=== PATIENT | male | born 1935 | race Caucasian/White ===

== ENCOUNTER → 2019-08-19 | Outpatient (CLI) | payer OTHER ==
[~2019-08-19] MED LIST: ACETAMINOPHEN650 M5 PO; ASPIRIN EC81 M1 PO; CLOPIDOGREL75 MG PO; CRESTOR20 MG PO; FISH OIL 1,0001 EAC5 PO; MULTI VITAMIN1 EACH PO; NITROSTAT0.4 MG SL; OMEPRAZOLE 20 M20 M1 PO; ZESTRIL10 MG PO; ZESTRIL20 MG PO
== END ==
LOC: M.WC 01:08
DX: L03.032 Cellulitis of left toe (principal); E78.00 Pure hypercholesterolemia, unspecified; E03.9 Hypothyroidism, unspecified; I10 Essential (primary) hypertension; I70.90 Unspecified atherosclerosis; K21.9 Gastro-esophageal reflux disease without esophagitis; Z79.82 Long term (current) use of aspirin; Z95.5 Presence of coronary angioplasty implant and graft

== ENCOUNTER → 2019-08-26 | Outpatient (CLI) | payer OTHER | LOC: M.WC 01:39 | DX: L03.032 Cellulitis of left toe (principal); E03.9 Hypothyroidism, unspecified; E78.00 Pure hypercholesterolemia, unspecified; I70.90 Unspecified atherosclerosis; I10 Essential (primary) hypertension; K21.9 Gastro-esophageal reflux disease without esophagitis; Z95.5 Presence of coronary angioplasty implant and graft ==

== ENCOUNTER → 2019-09-02 | Outpatient (CLI) | payer OTHER | LOC: M.WC 03:39 | DX: L03.032 Cellulitis of left toe (principal); E78.00 Pure hypercholesterolemia, unspecified; E03.9 Hypothyroidism, unspecified; I10 Essential (primary) hypertension; I70.90 Unspecified atherosclerosis; K21.9 Gastro-esophageal reflux disease without esophagitis; Z95.5 Presence of coronary angioplasty implant and graft ==

== ENCOUNTER → 2019-11-11 | Outpatient (CLI) | payer OTHER | LOC: M.WC 01:36 | DX: R21 Rash and other nonspecific skin eruption (principal); N18.3 Chronic kidney disease, stage 3 (moderate); E03.9 Hypothyroidism, unspecified; E78.00 Pure hypercholesterolemia, unspecified; K21.9 Gastro-esophageal reflux disease without esophagitis; Z79.82 Long term (current) use of aspirin ==

== ENCOUNTER → 2021-07-29 | Outpatient (CLI) | payer OTHER ==
--- NOTE | 2021-07-29 17:19 | CARDNUC ---
[place] [address] CARDIAC NUCLEAR IMAGING REPORT Name: MALLY GUZMAN Room: [facility]#: [id number] Admission: 07/29/21 Attend Phys: Slim Gracia MD Discharge: Date of : 33 Date of Service: 07/29/21 1718 Report #: [id number] THIS REPORT FOR: cc: Maco Snow MD, Khanh MD Liston, Michael J. MD [facility] ~ APPROVED REPORT Study performed: 07/29/2021 12:52:49 Exam: Nuclear Stress Test Indication: Dyspnea, Fatigue Patient Location: Out-Patient Stress Tech: krys arevalo Stress Nurse: Shirley Carrasco RN NM Tech:GAGE Gifford Ht: 5 ft 10 in Wt: 190 lbs BSA: 2.04 m2 BMI: 27.25 Medical History Medical History: CAD s/p stent Medications: clopidogrel, isosorbide, metoprolol, rosuvastatin Allergies: No known drug allergies Cardiac Risk Factors: Age, HTN, Hyperlipidemia Previous Cardiac Procedures: PCI Exercise History: Physically active Meds Held (24 hrs): isosorbide, metoprolol Stress Test Details Stress Test: Pharmacologic stress testing performed using 0.4 mg of regadenoson per 5 mL given IV over 10 seconds. Reason for pharmacologic stress test: LBBB. HR Resting HR: 70 bpm Max Heart Rate (APMHR): 133 bpm Max HR Achieved: 97 bpm Target HR (85% APMHR): 113 bpm % of APMHR: 72 Recovery HR: 85 bpm BP Resting BP: 182/107 mmHg Max BP: 158/85 [place] [address] CARDIAC NUCLEAR IMAGING REPORT Name: GUZMANMALLY L Room: [facility]#: [id number] Admission: 07/29/21 Attend Phys: Slim Gracia MD Discharge: Date of : 34 Date of Service: 07/29/21 1718 Report #: [id number] ECG Resting ECG: Sinus Rhythm, LBBB Stress ECG: Sinus Rhythm, LBBB ST Change: None Arrhythmia: None Recovery ECG: Sinus Rhythm, LBBB Recovery ST Change: None Recovery Arrhythmia: None Clinical Reason for Termination: Completed protocol The patient tolerated Lexiscan infusion without significant cardiac complaint. Stress ECG Conclusion The baseline twelve-lead EKG shows sinus rhythm with left bundle branch block. EKGs obtained during and post Lexiscan infusion show sinus rhythm with left bundle branch block. There were no significant changes with Lexiscan stress noted. There were no stress-induced arrhythmias. NM EXAM: Myocardial Perfusion REST/STRESS Imaging Protocol: Rest Tc-99m/Stress Tc-99m 1 day Resting Data Rest SPECT myocardial perfusion imaging was performed in supine position 30 minutes following the intravenous injection of 10.0 mCi of Tc-99m Sestamibi. Time of rest injection: 1200 Date: 07/29/2021 The images were gated to evaluate regional wall motion and calculate left ventricular ejection fraction. Administration Route: IV Pharmacologic Stress Pharmacologic stress test was performed by injecting Regadenoson 0.4 mg IV push followed by the intravenous injection of 35.4 mCi of Tc-99m Sestamibi. Time of stress injection: 1300 Date: 07/29/2021 Administration Route: IV Gated Stress SPECT was performed 40 minutes after stress injection. The images were gated to evaluate regional wall motion and calculate left ventricular ejection fraction. [place] [address] CARDIAC NUCLEAR IMAGING REPORT Name: MALLY GUZMAN Room: [facility]#: [id number] Admission: 07/29/21 Attend Phys: Slim Gracia MD Discharge: Date of : 34 Date of Service: 07/29/21 1718 Report #: [id number] Study Quality Study: Good Artifact: Mild Diaphragmatic artifact Study Data Post stress, the left ventricular ejection was 77%.. TID = 0.88. Perfusion Perfusion images obtained in the supine position at rest and post Lexiscan stress show mild basilar to mid inferior wall photopenia that resolves with post-rest prone imaging. Post-rest images show a residual persistent moderate size region of mild photopenia involving the basal to mid inferolateral wall. No other significant defects were identified. Wall Motion Global LV systolic function is preserved. There is slight left ventricular systolic dyssynergy consistent with bundle branch block. Nuclear Conclusion ECG Findings: non-diagnostic Clinical Findings: negative for ischemia Nuclear Findings: positive for ischemia Exercise Capacity: not assessed Left Ventricular Function: Preserved Risk Study: moderate Perfusion images suggest a small region of ischemia involving the basal to mid inferolateral wall. No other significant fixed or reversible defects are identified. Global LV systolic function is preserved as outlined above. This is a moderate risk study. <Conclusion> The baseline twelve-lead EKG shows sinus rhythm with left bundle branch block. EKGs obtained during and post Lexiscan infusion show sinus rhythm with left bundle branch block. There were no significant changes with Lexiscan stress noted. There were no stress-induced arrhythmias. <ELECTRONICALLY SIGNED> By: Rajendra Daniel MD, FACC 07/29/21 1718 17 17 Rajendra Daniel MD, FACC /INF
== END ==
LOC: M.NUC 06-02 11:25 → M.CRD 07-07 08:00 → M.NUC 07-07 08:00 → M.CRD 07-26 13:00 → M.NUC 07-26 13:00 → M.CRD 13:00
PROVIDERS: ATTEND Internal Medicine Cardiovascular Disease
DX: I25.89 Other forms of chronic ischemic heart disease (principal); I25.10 Atherosclerotic heart disease of native coronary artery without angina pectoris

== ENCOUNTER 2021-08-08 01:59 | Observation (INO) | payer OTHER ==
[~2021-08-08] VITALS: Ht 177.8 cm; Wt 87.1 kg
[~2021-08-08 01:59] MED LIST changes: +IMDUR 60 MG TAB60 M1 PO; +METOPROLOL TART25 MG PO; +NORVASC5 MG PO; +PROTONIX40 M2 PO; +SYNTHROID50 MCG PO
[2021-08-08 02:01] VITALS: BP 193/96
[2021-08-08 03:37] LABS: CALCIUM 8.5 mg/dL (8.5-10.1); CREATININE 1.6 mg/dL (0.6-1.3); POTASSIUM 4.3 mmol/L (3.5-5.1)
[2021-08-08 03:39] LABS: ABSOLUTE EOSINOPHILS 0.3 thou/uL (0.0-0.7); ABSOLUTE LYMPHOCYTES 0.9 thou/uL (0.8-5.3); ABSOLUTE MONOCYTES 0.8 thou/uL (0.0-1.2); ABSOLUTE NEUTROPHILS 5.9 thou/uL (1.6-8.1); BASOPHILS 0.3 %; EOSINOPHILS 3.7 %; HEMATOCRIT 43.2 % (42.0-52.0); HEMOGLOBIN 14.5 gm/dL (14.0-18.0); LYMPHOCYTES 11.6 %; MCHC 33.5 g/dL (28.0-37.0); MCV 92.8 fL (80.0-100.0); MONOCYTES 10.1 %; MPV 7.7 fl. (7.2-11.1); NUCLEATED RBCS 0 /100WBC; PLATELET COUNT* 184 thou/uL (150-400); POLYS 74.3 %; RBC 4.66 mil/uL (4.50-6.00); RDW-CV 13.4 % (10.5-14.5)
[2021-08-08 03:42] LABS: ALBUMIN 3.8 g/dL (3.4-5.0); MAGNESIUM 2.2 mg/dL (1.8-2.4); TOTAL BILIRUBIN 0.4 mg/dL (<0.1-1.0); TOTAL PROTEIN 7.4 g/dL (6.4-8.2)
[2021-08-08 05:26] LABS: URINE BILIRUBIN NEGATIVE (Negative); URINE BLOOD TRACE (Negative); URINE CLARITY CLEAR; URINE COLOR YELLOW; URINE GLUCOSE-RANDOM NEGATIVE (Negative); URINE KETONES NEGATIVE (Negative); URINE LEUKOCYTES-REFLEX NEGATIVE (Negative); URINE NITRITE-REFLEX NEGATIVE (Negative); URINE PROTEIN NEGATIVE (Negative); URINE SPECIFIC GRAVITY 1.025 (1.005-1.030); URINE UROBILINOGEN 0.2 E.U./dl (0.2-1.0)
[2021-08-08 09:09] VITALS: BP 150/77
[2021-08-08] MEDS ORDERED: ASA81BEC PO (09:49)
--- NOTE | 2021-08-08 13:16 | EKG ---
[place] [address] ELECTROCARDIOGRAM REPORT Name: MALLY GUZMAN Room: [address]#: [id number] Admission: 08/08/21 Attend Phys: Milton Fuchs Discharge: Date of : 34 Date of Service: 08/08/21 0156 Report #: [id number] THIS REPORT FOR: //name// [facility] ED Test Date: 2021-08-08 Test Time: 01:56:04 Pat Name: MALLY GUZMAN Department: Room: [facility] Gender: M Sports Intern: ARIK : 1935 Requested By: Susu Beltre Order Number: [id number] MD: Rajendra Daniel Measurements Intervals [place] Rate: 71 P: 61 CO: 208 QRS: -45 QRSD: 159 T: 65 QT: 460 QTc: 500 Interpretive Statements Sinus rhythm Consider left atrial enlargement Left bundle branch block No previous ECG available for comparison Electronically Signed On 08-08-2021 13:15:48 [employer] by Rajendra Daniel [email or web address] <ELECTRONICALLY SIGNED> By: Rajendra Daniel MD, FAC 08/08/21 1315 0156 0156 Rajendra Daniel MD, [facility] /EPI
[2021-08-08 13:30] VITALS: BP 127/71
[2021-08-08 14:33] LABS: PROTIME 10.7 Seconds (9.20-11.50)
[2021-08-08 14:36] LABS: ANION GAP 9 mmol/L (7-16); BUN 23 mg/dL (7-18); CHLORIDE 107 mmol/L (98-107); CHOLESTEROL 115 mg/dL (<200); CO2 28 mmol/L (21-32); CREATININE 1.8 mg/dL (0.6-1.3); GLUCOSE 147 mg/dL (70-99); HDL CHOLESTEROL 35 mg/dL (>40); LDL CHOLESTEROL 42 mg/dL (<100); POTASSIUM 4.3 mmol/L (3.5-5.1); SODIUM 144 mmol/L (136-145); TC:HDL 3.3 Ratio (Not establshd); TRIGLYCERIDE 194 mg/dL (<150); VLDL 39 mg/dL (<40)
[2021-08-08 14:37] LABS: SERUM ASSESSMENT Clear
[2021-08-08 17:35] VITALS: BP 125/71
[2021-08-08 22:30] VITALS: BP 141/82
[2021-08-08 23:44] VITALS: BP 141/82
[2021-08-09] VITALS (13 sets, daily range): BP systolic 114–156; BP diastolic 71–88
[2021-08-09 05:45] LABS: HEMATOCRIT 44.3 % (42.0-52.0); HEMOGLOBIN 14.8 gm/dL (14.0-18.0); MCH 31.2 pg (26.0-34.0); MCHC 33.3 g/dL (28.0-37.0); MCV 93.7 fL (80.0-100.0); MPV 8.1 fl. (7.2-11.1); RBC 4.73 mil/uL (4.50-6.00); RDW-CV 13.4 % (10.5-14.5); WBC 6.9 thou/uL (4.0-11.0)
[2021-08-09 05:56] LABS: APTT 32.6 Seconds (25.0-31.3); PROTIME 10.5 Seconds (9.20-11.50)
[2021-08-09 06:04] LABS: ALBUMIN 3.7 g/dL (3.4-5.0); CALCIUM 8.2 mg/dL (8.5-10.1); CREATININE 1.8 mg/dL (0.6-1.3); MAGNESIUM 1.8 mg/dL (1.8-2.4); POTASSIUM 4.2 mmol/L (3.5-5.1); TOTAL BILIRUBIN 0.6 mg/dL (<0.1-1.0); TOTAL PROTEIN 7.1 g/dL (6.4-8.2)
--- NOTE | 2021-08-09 07:10 | NUR ---
CHANGE OF SHIFT REPORT GIVEN PATIENT SEEN AT BESIDE, IN BED AND WATCHING TV ASSUMED PATIENT CARE
--- NOTE | 2021-08-09 15:31 | NUR ---
Attempted assessment x2 - however pt is having a heart cath today. CM to continue to follow for discharge planning.
--- NOTE | 2021-08-09 17:23 | CARD ---
[address] [address] CARDIAC CATH REPORT Name: MALLY GUZMAN Room: [address] Pj MSabrina#: [id number] Admission: 08/08/21 Attend Phys: Celine Sheehan Discharge: Date of : 34 Report #: [id number] THIS REPORT FOR: cc: Maco Snow MD, Khanh MD Blick, David R. MD [facility] ~ APPROVED REPORT Study performed: 08/09/2021 13:50:35 Patient Details Patient Status: In-Patient Room #: 202 The patient is a 86 year-old male Event Personnel Slim Gracia Professor Of Nursing, Liliana Rincon RN RN, Christy Valdes RTR Scrub, Apple Sutherland RN Monitor Procedures Performed Art Access - R radial artery Left Heart Cath w/or w/o Coronaries [id number] [facility] w/wo Plasty Single RCA [id number] Hemostasis with Hemoband Indication Unstable angina , Chest pain Risk Factors Hypercholesterolemia, Coronary Artery DiseaseHypertension Previous Procedures/Diagnoses Previous PCI Admission/Lab Medications/Medications given during procedure Heparin Unfract., Oxygen Nasal cannula 2 l per min, 0.9% Sodium Chloride IV 75 ml per hr, Lidocaine Subcut 5 ml, Nitroglycerin IA 400 mcg, Verapamil IA 5.0 mg, Heparin IV 4480 units, Heparin IV 3000 units Procedure Narrative The patient was brought electively to the Cardiac Catheterization Laboratory and was prepped and draped in a sterile manner. The right wrist was infiltrated with 2% Lidocaine subcutaneous anesthesia. IV conscious sedation was used throughout procedure with appropriate monitoring and was performed in the [place] [address] CARDIAC CATH REPORT Name: GUZMANMALLY L Room: [address] Pj Benson#: [id number] Admission: 08/08/21 Attend Phys: Celine Sheehan Discharge: Date of : 34 Report #: [id number] who was an independent trained observer other than the physician performing the procedure. A Slender Glidesheath sheath was inserted into the right radial artery. Coronary angiography was performed using coronary diagnostic catheters. The right coronary system was accessed and visualized with a Diagnostic 6 Fr JL 4.0 catheter. The left coronary system was accessed and visualized with a Diagnostic 6 Fr JL 4.0 catheter. The left ventricle was accessed and visualized with a Diagnostic pigtail catheter. Left ventricular/Aortic Valve gradient assessed via catheter pullback. Left ventriculogram was performed in ALVARES projection. Closure device was deployed with a 6 Fr Vasc-Band Reg 24cm. The patient tolerated the procedure well and there were no complications associated with the procedure. There was no hematoma. Intraoperative Conscious Sedation Sedation start time: 1446 Case end Time: 1551 Versed 2.0 mg Dose: 1054 mGy Contrast Type and Amount: Visipaque 180 mL Coronary Angiography The patient's coronary anatomy is right dominant. Diagnostic Cath Left Main 60% distal stenosis LAD mid stent had 0% restenosis Diagonal 1 large vessel with 60% ostial stenosis Circumflex ostial 100% chronic occlusion with retrograde collaterals from the RCA Right Coronary proximal and mid stents both had 90% restenosis. Distal collaterals filled the circumflex artery by retrograde flow. Left Ventriculography The left ventricular ejection fraction is estimated to be 60-65%. Left ventricular wall motion abnormalities are not present. There is 1+ mitral insufficiency. Hemodynamics The aortic pressure is 120/67 mmHg with a mean of 90 mmHg. The left ventricular pressure is 126/10 mmHg with a mean of mmHg. The left ventricular end diastolic pressure is 14 mmHg. There was no gradient across the aortic valve upon pull[place] [address] CARDIAC CATH REPORT Name: GUZMANMALLY L Room: [address]#: [id number] Admission: 08/08/21 Attend Phys: Celine Sheehan Discharge: Date of : 34 Report #: [id number] ventricle to the aorta revealed no gradient across the aortic valve. PCI Technique Lesion Anticoagulation was achieved with Heparin. Patient was preloaded with Plavix. Percutaneous coronary intervention was performed on the proximal and mid right coronary artery. The lesion stenosis prior to intervention was 90% with STEPHANIE 3 flow. A 6F AR 2 Guide Catheter was used to engage the rca ostium. A IG: BMW 190cm Interventional Guidewire was used to cross the lesion. BALLOON DILATION A Balloon catheter Euphora SC 2.5x10 was inserted and inflated up to 16.00atm for 17seconds. Repeat angiography revealed the following post-dilatation results: 50% stenosis. Additional Inflation: 16.00atm for 13seconds. Both the mid and proximal stenoses were predilated. Because of abnormal takeoff of the RCA, a 3DRC catheter was unable to supply support for PTCA. STENT DEPLOYMENT A drug-eluting stent Xience Anahi 2.33C01xp was inserted and inflated up to 20.00atm for 18seconds. Repeat angiography revealed the following post-stent deployment results: 0% stenosis. Additional Inflation: 22.00atm for 12seconds. Due to tortortuosity of the RCA and lack of guide support, the stent required a second BMW wire in the RCA to act as a ebenezer wire to advance the stent. Final angiography reveals 0 % stenosis with STEPHANIE 3 flow. Conclusion 1. 60% distal left main stenosis. 2. No restenosis noted of a stent in the mid LAD. 3. chronic occlusion of the proximal circumflex, that filled distally by retrograde collaterals from the RCA. 4. 90% restenosis noted of both stents in the proximal and mid RCA. 5. LVEF 60-65% 6. successful placement of a long drug eluting stent in the proximal and [place] [address] CARDIAC CATH REPORT Name: KRISTEL GUZMANPITA Hernandez Room: [address] ADM Pj Benson#: [id number] Admission: 08/08/21 Attend Phys: Celine Sheehan Discharge: Date of : 34 Report #: [id number] Cardiac Rehabilitation Referral [facility] <ELECTRONICALLY SIGNED> By: Slim Gracia MD, FACC 08/09/21 [phone] 1722Daviceline Gracia MD, FACC /INF
[2021-08-10] VITALS (7 sets, daily range): BP systolic 100–132; BP diastolic 51–71
[2021-08-10 06:16] LABS: HEMATOCRIT 40.9 % (42.0-52.0); HEMOGLOBIN 13.7 gm/dL (14.0-18.0); MCH 31.3 pg (26.0-34.0); MCHC 33.6 g/dL (28.0-37.0); MCV 93.3 fL (80.0-100.0); RBC 4.38 mil/uL (4.50-6.00); RDW-CV 13.4 % (10.5-14.5); WBC 7.3 thou/uL (4.0-11.0)
[2021-08-10 06:36] LABS: CALCIUM 8.2 mg/dL (8.5-10.1); CREATININE 1.6 mg/dL (0.6-1.3); MAGNESIUM 1.8 mg/dL (1.8-2.4); POTASSIUM 4.2 mmol/L (3.5-5.1)
--- NOTE | 2021-08-10 08:13 | CON ---
[address] [address] CONSULTATION Name: MALLY GUZMAN Room: [address] Pj Benson#: [id number] Admission: 08/08/21 Attend Phys: Celine Sheehan Discharge: Date of : 34 Report #: [id number] THIS REPORT FOR: cc: Maco Snow MD, Khanh MD Liston, Michael J. MD [facility] ~ cc: Francesca Cervantes DO, David R. Blick, MD [facility] DATE OF CONSULTATION: 08/08/2021 INDICATION: Chest pain. HISTORY OF PRESENT ILLNESS: The patient is a very pleasant 86-year-old gentleman with history of coronary artery disease. He had previous stenting to his right coronary artery and LAD in 2014. The patient has been having accelerating chest pain over the past several weeks. Typically, his chest pain was relieved with a single sublingual nitroglycerin. Last night, he took 3 nitroglycerins without significant relief and presented to the Emergency Room. He is thus far ruled out for myocardial infarction; however, he does have evidence of inferior wall ischemia on recent stress test. The patient is without other cardiac complaints at this time. PAST MEDICAL HISTORY: 1. Coronary artery disease. 2. Hypertension. 3. Hyperlipidemia. 4. Left knee surgery. 5. Appendectomy. 6. Seasonal allergies. HOME MEDICATIONS: Rosuvastatin 20 mg at bedtime, multivitamin 1 tablet daily, fish oil 1000 mg daily, Plavix 75 mg daily, Imdur 60 mg daily, Synthroid 50 mcg daily, metoprolol tartrate 25 mg b.i.d., Protonix 40 mg daily, amlodipine 5 mg daily. ALLERGIES: None known. SOCIAL HISTORY: The patient drinks alcohol occasionally. He does not smoke. REVIEW OF SYSTEMS: As per HPI, otherwise unremarkable. PHYSICAL EXAMINATION: VITAL SIGNS: Stable. Blood pressure 150/77, pulse is 76 and regular. GENERAL: This is a pleasant gentleman in no distress[place] [address] CONSULTATION Name: KRISTEL GUZMANPITA Hernandez Room: [address] Marcelino#: [id number] Admission: 08/08/21 Attend Phys: Celine Sheehan Discharge: Date of : 34 Report #: [id number] HEENT: Extraocular muscles intact. Mucous membranes are moist. NECK: Shows no jugular venous distention. There are no carotid bruits. CHEST: Reveals clear lung coombs without wheezes or rales. CARDIAC: Reveals a regular rhythm without gallop or murmur. ABDOMEN: Reveals normal bowel sounds. The abdomen is soft, nontender. EXTREMITIES: Shows no clubbing, cyanosis or edema. DIAGNOSTIC DATA: A 12-lead EKG shows a sinus rhythm without acute ST abnormality. LABORATORY DATA: Reviewed and unremarkable. IMPRESSION AND RECOMMENDATIONS: 1. Chest pain in patient with recent positive stress test and progressive angina. We will plan coronary angiography in a.m. 2. Coronary artery disease. Continue Plavix at current dose. 3. Hypertension. Blood pressure is mildly elevated at this time. We will adjust medications as needed. 4. Dyslipidemia. Continue current statin agent. <ELECTRONICALLY SIGNED> By: Rajendra Daniel MD, FACC 08/10/21 0813 1155 [id number] Daniel MD, FACC /nt
--- NOTE | 2021-08-10 08:41 | EKG ---
[place] [address] ELECTROCARDIOGRAM REPORT Name: MALLY GUZMAN Room: [address]#: [id number] Admission: 08/08/21 Attend Phys: Milton Fuchs Discharge: Date of : 34 Date of Service: 08/10/21 0744 Report #: [id number] THIS REPORT FOR: //name// [facility] Test Date: 2021-08-10 Test Time: 07:44:29 Pat Name: MALLY GUZMAN Department: Room: [address] Gender: M House Designer: : 1935 Requested By: Slim Gracia Order Number: [id number] Vanessa MD: Rajendra Daniel Measurements Intervals [place] Rate: 60 P: 40 WV: 209 QRS: -39 QRSD: 156 T: 58 QT: 497 QTc: 497 Interpretive Statements Sinus rhythm Left bundle branch block Compared to ECG 08/08/2021 01:56:04 No significant changes Electronically Signed On 08-10-2021 8:41:03 [employer] by Rajendra Daniel [email or web address] <ELECTRONICALLY SIGNED> By: Rajendra Daniel MD, [facility] 08/10/21 0841 0744 Rajendra Daniel MD, [facility] /EPI
--- NOTE | 2021-08-10 08:50 | NUR ---
Pt is admitted on 08/08/21 for chest pain. Pt had a heart cath yesterday. Pt is alert and oriented x 4. Pt lives with in a house with 2 steps to enter. Pt was previously independent in ambulation and ADL's. No hx of HH/DME/ or SNF. Pt fills his prescriptions at [facility] on [address], [address] Pt saw his PCP 2-3 months ago. Anticipate possible discharge today. CM to continue to follow for discharge needs.
--- NOTE | 2021-08-10 13:05 | NUR ---
ASSUMED CARE OF PT THIS AM AROUND 07- CEMENT LOADER IN PLACE ORDERED, TRACING SR/1ST DEGREE/BBB- UPON ASSESSMEN PT NOTED TO BE RESTING IN BED- PT A&O X4- CONT OF B/B- UP AD-CLOTILDE IN ROOM, STEADY GAIT- VSS, O2 SAT 96% ON RA- ABD SOFT/ROUND/NON-TENDER, BS X4 QUADS- BM REPORTED THIS AM-RIGHT INCISSION CATH SITE WITH GAUZE CLEAR DRESSING IN PLACE, NO DRAINAGE OR SWELLING NOTED- IVF COMPLETED INDICATED AND PT IV TO LEFT FA AND LEFT AC D/C'D FOR DISCHARGE INDICATED- HERE TO SEE PT WELL WITH OKAY TO D/C TO HOME THIS SHIFT- D/C EDUCATION/TEACHING/NEEDED FOLLOW UP'S COMMUNICATED TO PT AND DAUGHTER PRIOR TO D/C WITH ALL QUESTIONS AND CONCERNS ADDRESSED PRIOR TO D/C- BELONGINGS PACKED AND ACCOUNTED FOR PER PT- PT ESCORTED- PT ESCORTED PER TECH WITH BELONGINGS VIA W/C TO VEHICLE; DAUGHTER AT SIDE AT 1310- NO PROBLMES TO NOTE AT TIME OF D/C
== END 2021-08-10 13:10 | disposition home or self-care (01) ==
LOC: M.ERS 01:59 → M.2W 03:59 → M.TBA-ER 03:59 → M.2W 08-09 00:31
PROVIDERS: Emergency Medicine; Internal Medicine; Internal Medicine Cardiovascular Disease; ADMIT Internal Medicine; ATTEND Internal Medicine
DX: I25.10 Atherosclerotic heart disease of native coronary artery without angina pectoris (principal); K21.9 Gastro-esophageal reflux disease without esophagitis; Z20.822 Contact with and (suspected) exposure to COVID-19; E03.9 Hypothyroidism, unspecified; E78.5 Hyperlipidemia, unspecified; I44.7 Left bundle-branch block, unspecified; I51.7 Cardiomegaly; I12.9 Hypertensive chronic kidney disease with stage 1 through stage 4 chronic kidney disease, or unspecified chronic kidney disease; N18.2 Chronic kidney disease, stage 2 (mild); Z90.49 Acquired absence of other specified parts of digestive tract; Z98.890 Other specified postprocedural states; Z79.899 Other long term (current) drug therapy; Z79.82 Long term (current) use of aspirin

== ENCOUNTER 2021-09-02 07:49 | Inpatient (IN) | payer OTHER ==
[~2021-09-02] VITALS: Ht 177.8 cm; Wt 90.3 kg
--- NOTE | ~2021-09-02 | PROC ---
[address] [address] PROCEDURE REPORT Name: MALLY GUZMAN Room: [address] IN .R.#: [id number] Admission: 09/02/21 Attend Phys: Shayla Delgado MD Discharge: 09/07/21 Date of : 34 Report #: [id number] THIS REPORT FOR: cc: Maco Snow MD, Khanh MD [facility],Medical Records Staff ~ For Gi report, please see the Provation report in Perceptive 7 content. By: [id number] Records Staff YESY /SEUN
--- NOTE | ~2021-09-02 | EMS ---
[address] [address] EMS Patient Care Report Name: MALLY GUZMAN [id number] Admission: Attend Phys: Discharge: Date of : 34 Report #: [id number] THIS REPORT FOR: //name// Report Transmitted: 09/02/2021 07:38 EMS Care Summary [facility] [place] Incident [id number] @ 09/02/2021 07:08 Incident Location [facility] [address] [place] [address] Patient MALLY GUZMAN Male, 86 Years 1935 Patient Address [address] [place] [address] Patient History Cardiac Condition - Other,Presence of coronary angioplasty implant and graft,Hypothyroidism, unspecified, Patient Allergies No known allergies, Patient Medications Clopidogrel, Sertraline, Metoprolol, Aspirin, Rosuvastatin, Valtrex, Chief Complaint Vomiting Disposition Transported No Lights/[place] Dispatch Reason Hemorrhage/Laceration Transported To [facility] Narrative [facility] DISPATCHED TO PRIVATE RESIDENCE FOR VOMITING BLOOD. [facility] RESPONDS WITH DELAYING FACTORS. [facility] ON SCENE PRIOR TO [facility] ARRIVAL. [facility] GREETS [facility] AND STATES PT THROWING UP BLOOD AROUND 0300 AND THEN AGAIN AROUND 0400. IFD STATES [address] [place] [address] EMS Patient Care Report Name: MALLY GUZMAN [facility]#: [id number] Admission: Attend Phys: Discharge: Date of : 34 Report #: [id number] PT DENYING PAIN. UPON ARRIVAL PT IS ALERT AND ORIENTED WITH PATENT AIRWAY. PT STATES WAKING UP AFTER BEING RESTLESS ALL NIGHT FEELING LIKE HE WAS GOING TO THROW UP. PT STATES THROWING UP TWICE " A LOT" EARLY THIS MORNING. PT STATES NOT HAVING ANYTHING TO EAT SINCE 1999 LAST NIGHT. IFD OBTAINED PT VITALS PRIOR TO [facility] ARRIVAL. PT STATES WANTING TO WALK TO STRETCHER. PT WALKS TO STRETCHER WITH GAIT ASSISTANCE FOLLOWING PT STATING HE FELT WEAK WITH NO INCIDENT. PT IS SECURED TO STRETCHER AND TRANSPORTED TO AMBULANCE WITH NO INCIDENT. ONCE IN AMBULANCE PT IS PLACED ON UNIT MONITOR. PT VITALS OBTAINED. PT STATES HAVING STENTS PLACED TWO WEEKS AGO AT DESTINATION. PT STATES BEING ON BLOOD THINNERS. IV ESTABLISHED DURING TRANSPORT. PT REMAINS ALERT AND ORIENTED WITH PATENT AIRWAY DURING TRANSPORT. PT REMAINS ON MONITOR DURING TRANSPORT. PT IS TRANSPORTED IN POSITION OF COMFORT WITH NO INCIDENT. AT DESTINATION PT IS REMOVED FROM MONITOR. PT IS TRANSPORTED TO ER11 WITH NO INCIDENT. PT STATES WANTING TO WALK TO BED. PT IS LOWERED ON STRETCHER IN ROOM. PT HAS SEATBELTS REMOVED. PT WALKS TO ER BED WITH NO INCIDENT. PT IS ALERT AND ORIENTED WITH PATENT AIRWAY AT TIME OF PT CARE TRANSFER. PT CARE IS TRANSFERRED. [facility] 305 CLEAR. Initial Vitals @CARDIAC NURSE SPECIALIST: 07:16Pain: 0/10, @07:20Pain: 010, @07:27SpO2: 97, @07:38SpO2: 95, @07:27P: 79,R: 16,BP: 160/90, @07:38P: 90,R: 16,BP: 160/137, @07:42P: 82,R: 16,BP: 119/76, @07:27GCS: 15, @07:38GCS: 15, @07:42GCS: 15, @07:16 Assessments @07:16MENTAL:SKIN:HEENT:LUNG SOUNDS:ABDOMEN:PELVIS//GI:EXTREMITIES:PULSE:NEURO: Impression Vomiting Procedures @07:40 IV Therapy - cc () Site: Antecubital-Left Response: UnchangedSucceeded Timeline 03:00,Call Received 06:59,Dispatch Notified 06:59,[place] [address] EMS Patient Care Report Name: KRISTEL GUZMANPITA Hernandez Room[facility]#: [id number] Admission: Attend Phys: Discharge: Date of : 34 Report #: [id number] 07:08,Dispatched 07:09,En Route 07:15,On Scene 07:16,At Patient 07:16,BP: / M,PULSE: ,RR: R,SPO2: Ox,ETCO2: ,BG: ,PAIN: 0,GCS: , 07:16,BP: / M,PULSE: ,RR: R,SPO2: Ox,ETCO2: ,BG: ,PAIN: ,GCS: , 07:20,BP: / M,PULSE: ,RR: R,SPO2: Ox,ETCO2: ,BG: ,PAIN: 0,GCS: , 07:27,BP: / M,PULSE: ,RR: R,SPO2: 97 Ox,ETCO2: ,BG: ,PAIN: ,GCS: , 07:27,BP: 160/90 M,PULSE: 79,RR: 16 R,SPO2: Ox,ETCO2: ,BG: ,PAIN: ,GCS: , 07:27,BP: / M,PULSE: ,RR: R,SPO2: Ox,ETCO2: ,BG: ,PAIN: ,GCS: 15, 07:28,Depart Scene 07:38,BP: / M,PULSE: ,RR: R,SPO2: 95 Ox,ETCO2: ,BG: ,PAIN: ,GCS: , 07:38,BP: 160/137 M,PULSE: 90,RR: 16 R,SPO2: Ox,ETCO2: ,BG: ,PAIN: ,GCS: , 07:38,BP: / M,PULSE: ,RR: R,SPO2: Ox,ETCO2: ,BG: ,PAIN: ,GCS: 15, 07:40,IV Therapy - cc Site: Antecubital-Left,Response: UnchangedSucceeded, 07:42,BP: 119/76 M,PULSE: 82,RR: 16 R,SPO2: Ox,ETCO2: ,BG: ,PAIN: ,GCS: , 07:42,BP: / M,PULSE: ,RR: R,SPO2: Ox,ETCO2: ,BG: ,PAIN: ,GCS: 15, 07:46,At Destination 08:01,Call Closed Disclaimer v1.1 Copyright 2021 [employer] This EMS Care Summary contains data elements from the applicable legal record (which may be displayed differently). It is designed to provide pertinent information for the following purposes: continuity of care, clinical quality, and state data reporting. The complete legal record is available to ED staff and administrators of the receiving hospital in [employer]'s Patient Tracker. All data is provided "as is."
[~2021-09-02 07:49] MED LIST changes: +ASA81BEC PO
[2021-09-02 07:54] VITALS: BP 138/76
[2021-09-02 08:29] LABS: CREATININE 1.9 mg/dL (0.6-1.3); HEMATOCRIT 35.5 % (42.0-52.0); HEMOGLOBIN 11.6 gm/dL (14.0-18.0); MCH 30.6 pg (26.0-34.0); MCHC 32.5 g/dL (28.0-37.0); MCV 94.2 fL (80.0-100.0); MPV 8.4 fl. (7.2-11.1); NUCLEATED RBCS 0 /100WBC; PLATELET COUNT* 243 thou/uL (150-400); POTASSIUM 5.8 mmol/L (3.5-5.1); RBC 3.77 mil/uL (4.50-6.00); RDW-CV 13.3 % (10.5-14.5); WBC 17.8 thou/uL (4.0-11.0)
[2021-09-02 08:33] LABS: ALBUMIN 3.2 g/dL (3.4-5.0); TOTAL BILIRUBIN 0.5 mg/dL (<0.1-1.0); TOTAL PROTEIN 6.6 g/dL (6.4-8.2)
[2021-09-02 09:24] LABS: ABSOLUTE LYMPHOCYTES 0.7 thou/uL (0.8-5.3); ABSOLUTE MONOCYTES 1.2 thou/uL (0.0-1.2); ABSOLUTE NEUTROPHILS 15.8 thou/uL (1.6-8.1); PLATELET ESTIMATE ADEQUATE
[2021-09-02 09:26] LABS: HYPOCHROMASIA Occasional
--- NOTE | 2021-09-02 12:48 | EKG ---
[place] [address] ELECTROCARDIOGRAM REPORT Name: MALLY GUZMAN Room: [place] [address] ADM IN [facility]#: [id number] Admission: 09/02/21 Attend Phys: Shayla Delgado, Discharge: Date of : 34 Date of Service: 09/02/21 0754 Report #: [id number] THIS REPORT FOR: //name// [facility] ED Test Date: 2021-09-02 Test Time: 07:54:10 Pat Name: MALLY GUZMAN Department: Room: [facility] Gender: M Educational Therapy Teacher: DAMIAN : 1935 Requested By: Nahum Sethi Order Number: [id number] MD: Efren Gagnon Measurements Intervals [place] Rate: 82 P: 41 AL: 178 QRS: -51 QRSD: 149 T: 96 QT: 411 QTc: 480 Interpretive Statements Sinus rhythm Left bundle branch block Compared to ECG 08/10/2021 07:44:29 No significant changes Electronically Signed On 09-02-2021 12:47:37 LAW INSTRUCTOR by Efren Gagnon [email or web address] <ELECTRONICALLY SIGNED> By: Efren Gagnon MD, [facility] 09/02/21 1247 0754 0754 Efren Gagnon MD, [facility] /EPI
[2021-09-02 13:18] VITALS: BP 138/72
[2021-09-02 17:00] VITALS: BP 144/70
--- NOTE | 2021-09-02 17:12 | CON ---
[address] [address] CONSULTATION Name: MALLY GUZMAN David Room: [address] IN M.R.#: [id number] Admission: 09/02/21 Attend Phys: Shayla Delgado MD Discharge: Date of : 34 Report #: [id number] THIS REPORT FOR: cc: Maco Snow MD,Christopher Evans MD, MD ~ cc: Maco Snow MD, Slim Gracia MD [facility] DATE OF CONSULTATION: 09/02/2021 Please note at the time of this dictation, the patient was seen and physically examined by myself. PRIMARY CARE PHYSICIAN: Maco Snow MD REASON FOR CONSULTATION: Hematemesis. HISTORY OF PRESENT ILLNESS: This is an 86-year-old male who had recently been hospitalized in July for chest pain. Underwent a heart catheterization, stent placed. He has also had a history of previous stents back in 2014 in which he has been on Plavix since that time. He has done relatively well up until earlier this week, he developed a type of lip rash. He went and saw his PCP. His PCP placed him on methylprednisolone and valacyclovir, which he started taking. The patient states he was doing fine. His bowels moved yesterday in the afternoon, soft and formed with no evidence of any bright red blood or melena; however, around 2:00 a.m. this morning, he awoken feeling nauseated that he was going to vomit and went to the bathroom and vomited up twice coffee-ground type emesis. At that point, he denied any abdominal pain or any chest pain and he denies taking any NSAIDs along with his blood thinner. He then called 911 to bring him to the hospital. The patient has never had an EGD done before or had any issues with acid reflux. He has had a colonoscopy done many years ago and they have all been normal in the past. ALLERGIES: No known drug allergies. MEDICATIONS FROM HOME: Include , his last dose was at 10:00 last night, omega-3, multivitamin, Crestor, aspirin, amlodipine, pantoprazole, metoprolol, levothyroxine, and imdur. PAST MEDICAL HISTORY: Hypertension, GERD, hyperlipidemia, history of cardiac stents, hypothyroidism. PAST SURGICAL HISTORY: Appendectomy, left knee surgery and stents. FAMILY HISTORY: Negative for [place] [address] CONSULTATION Name: MALLY GUZMAN Room: [address]#: [id number] Admission: 09/02/21 Attend Phys: Shayla Delgado MD Discharge: Date of : 34 Report #: [id number] SOCIAL HISTORY: Alcohol socially. Denies any tobacco or illegal drug use. REVIEW OF SYSTEMS: Twelve-point review of systems is essentially negative except what is mentioned in the HPI. PHYSICAL EXAMINATION: VITAL SIGNS: Temperature 36.2, pulse 75, respirations 16, blood pressure 135/67. HEART: Regular rate and rhythm. LUNGS: Clear. ABDOMEN: Soft, positive bowel sounds in all 4 quadrants with no masses or tenderness noted. The patient is somewhat emotional at this time during the interview. LABORATORY DATA: Hemoglobin the end of July when he left after his last hospitalization was 14.8 and upon arriving here to the ER, he was 11.6; white count was 7.1 and previously last hospitalization in the July, he was 17.8; platelets are 243. GFR is only 34. In reviewing his BUN on his last hospitalization when he was discharged, it was 21, on admission here is 71 and creatinine is 1.9. IMPRESSION: 1. Hematemesis. 2. Anticoagulant therapy, Plavix secondary to stents. 3. Leukocytosis. 4. Slightly elevated troponin. PLAN: 1. Obtain clearance from Cardiology. 2. EGD today with Dr. Helton if above cleared. 3. Protonix drip. 4. Further recommendations to be made after the patient has been seen and has undergone the procedure later today. 5. We will check CBC and CMP in the a.m. Thank you for allowing us to participate in this patient's care. Please do not hesitate to call with any questions regarding this consult. <ELECTRONICALLY SIGNED> By: Christopher Helton MD 09/02/21 1712 0955 1032Christopher Helton MD /nt
[2021-09-02 19:45] VITALS: BP 132/75
[2021-09-03] VITALS: BP 109/36
[2021-09-03 04:00] VITALS: BP 113/49
[2021-09-03 05:24] LABS: HEMATOCRIT 32.2 % (42.0-52.0); MCH 31.5 pg (26.0-34.0); MCHC 29.3 g/dL (28.0-37.0); MPV 8.4 fl. (7.2-11.1); RDW-CV 15.3 % (10.5-14.5); WBC 15.4 thou/uL (4.0-11.0)
[2021-09-03 05:30] LABS: ALBUMIN 3.2 g/dL (3.4-5.0); CALCIUM 7.8 mg/dL (8.5-10.1); CREATININE 1.8 mg/dL (0.6-1.3); TOTAL BILIRUBIN 0.3 mg/dL (<0.1-1.0); TOTAL PROTEIN 6.1 g/dL (6.4-8.2)
[2021-09-03 05:32] LABS: HEMOGLOBIN 9.4 gm/dL (14.0-18.0); MCV 107.5 fL (80.0-100.0)
[2021-09-03 05:46] LABS: POTASSIUM 4.4 mmol/L (3.5-5.1)
[2021-09-03 12:16] VITALS: BP 115/73
[2021-09-03 16:01] LABS: % SATURATION 27 % (20-39); IRON 80 ug/dL (50-175)
[2021-09-03 17:42] VITALS: BP 100/58
[2021-09-03 20:00] VITALS: BP 120/54
[2021-09-04 00:09] VITALS: BP 100/50
[2021-09-04 04:00] VITALS: BP 128/50
[2021-09-04 05:25] LABS: HEMATOCRIT 21.5 % (42.0-52.0); MCH 31.3 pg (26.0-34.0); MCHC 33.2 g/dL (28.0-37.0); MPV 8.6 fl. (7.2-11.1); RBC 2.28 mil/uL (4.50-6.00); RDW-CV 13.6 % (10.5-14.5)
[2021-09-04 05:28] LABS: ABSOLUTE EOSINOPHILS 0.3 thou/uL (0.0-0.7); ABSOLUTE LYMPHOCYTES 1.9 thou/uL (0.8-5.3); ABSOLUTE MONOCYTES 1.1 thou/uL (0.0-1.2); ABSOLUTE NEUTROPHILS 9.6 thou/uL (1.6-8.1); BASOPHILS 0.3 %; EOSINOPHILS 2.1 %; HEMATOCRIT 21.2 % (42.0-52.0); MCH 31.8 pg (26.0-34.0); MCHC 33.8 g/dL (28.0-37.0); MONOCYTES 8.8 %; MPV 8.6 fl. (7.2-11.1); NUCLEATED RBCS 0 /100WBC; PLATELET COUNT* 165 thou/uL (150-400); POLYS 73.8 %; RBC 2.25 mil/uL (4.50-6.00); RDW-CV 13.4 % (10.5-14.5)
[2021-09-04 06:00] LABS: CALCIUM 7.5 mg/dL (8.5-10.1); POTASSIUM 4.4 mmol/L (3.5-5.1); TOTAL BILIRUBIN 0.6 mg/dL (<0.1-1.0); TOTAL PROTEIN 5.9 g/dL (6.4-8.2)
[2021-09-04 06:02] LABS: ALBUMIN 3.2 g/dL (3.4-5.0); CREATININE 1.9 mg/dL (0.6-1.3)
[2021-09-04 06:13] LABS: HEMOGLOBIN 7.1 gm/dL (14.0-18.0); MCV 94.2 fL (80.0-100.0)
[2021-09-04 06:16] LABS: HEMOGLOBIN 7.2 gm/dL (14.0-18.0)
[2021-09-04 13:11] VITALS: BP 104/54
[2021-09-04 16:58] VITALS: BP 109/57
[2021-09-04 20:00] VITALS: BP 118/56
[2021-09-05] VITALS (8 sets, daily range): BP systolic 82–122; BP diastolic 35–74
[2021-09-05 05:36] LABS: ABSOLUTE EOSINOPHILS 0.1 thou/uL (0.0-0.7); ABSOLUTE LYMPHOCYTES 1.1 thou/uL (0.8-5.3); ABSOLUTE MONOCYTES 0.8 thou/uL (0.0-1.2); BASOPHILS 0.2 %; EOSINOPHILS 1.9 %; LYMPHOCYTES 13.9 %; MCH 32.2 pg (26.0-34.0); MCHC 34.5 g/dL (28.0-37.0); MCV 93.5 fL (80.0-100.0); MONOCYTES 9.7 %; MPV 8.2 fl. (7.2-11.1); NUCLEATED RBCS 0 /100WBC; PLATELET COUNT* 142 thou/uL (150-400); POLYS 74.3 %; RBC 2.09 mil/uL (4.50-6.00); RDW-CV 13.3 % (10.5-14.5)
[2021-09-05 05:52] LABS: ALBUMIN 2.9 g/dL (3.4-5.0); CALCIUM 7.3 mg/dL (8.5-10.1); CREATININE 1.7 mg/dL (0.6-1.3); POTASSIUM 3.6 mmol/L (3.5-5.1); TOTAL BILIRUBIN 0.4 mg/dL (<0.1-1.0); TOTAL PROTEIN 5.6 g/dL (6.4-8.2)
[2021-09-05 06:30] LABS: HEMATOCRIT 19.5 % (42.0-52.0); HEMOGLOBIN 6.7 gm/dL (14.0-18.0)
[2021-09-05 17:06] LABS: HEMATOCRIT 24.3 % (42.0-52.0); HEMOGLOBIN 8.2 gm/dL (14.0-18.0)
[2021-09-06 04:36] VITALS: BP 97/52
[2021-09-06 05:11] LABS: ABSOLUTE EOSINOPHILS 0.1 thou/uL (0.0-0.7); ABSOLUTE MONOCYTES 0.6 thou/uL (0.0-1.2); ABSOLUTE NEUTROPHILS 4.8 thou/uL (1.6-8.1); BASOPHILS 0.1 %; EOSINOPHILS 1.5 %; HEMATOCRIT 21.7 % (42.0-52.0); HEMOGLOBIN 7.4 gm/dL (14.0-18.0); LYMPHOCYTES 15.8 %; MCH 31.8 pg (26.0-34.0); MCHC 34.3 g/dL (28.0-37.0); MCV 92.5 fL (80.0-100.0); MONOCYTES 8.8 %; MPV 8.6 fl. (7.2-11.1); NUCLEATED RBCS 0 /100WBC; PLATELET COUNT* 120 thou/uL (150-400); POLYS 73.8 %; RBC 2.34 mil/uL (4.50-6.00); RDW-CV 14.5 % (10.5-14.5); WBC 6.5 thou/uL (4.0-11.0)
[2021-09-06 05:34] LABS: ALBUMIN 2.8 g/dL (3.4-5.0); CALCIUM 7.3 mg/dL (8.5-10.1); CREATININE 1.8 mg/dL (0.6-1.3); POTASSIUM 3.7 mmol/L (3.5-5.1); TOTAL BILIRUBIN 0.4 mg/dL (<0.1-1.0); TOTAL PROTEIN 5.6 g/dL (6.4-8.2)
[2021-09-06 07:41] VITALS: BP 98/56
[2021-09-06 12:32] VITALS: BP 169/80
[2021-09-06 13:38] VITALS: BP 100/46
[2021-09-06 18:32] VITALS: BP 100/54
[2021-09-06 19:05] LABS: HEMATOCRIT 23.6 % (42.0-52.0); MCH 31.8 pg (26.0-34.0); MCV 93.6 fL (80.0-100.0); MPV 8.2 fl. (7.2-11.1); RBC 2.52 mil/uL (4.50-6.00); RDW-CV 14.8 % (10.5-14.5); WBC 6.9 thou/uL (4.0-11.0)
[2021-09-06 20:06] VITALS: BP 104/55
--- NOTE | 2021-09-14 08:00 | CON ---
[address] [address] CONSULTATION Name: MALLY VALENZUELA David Room: [address] [place] .R.#: [id number] Admission: 09/02/21 Attend Phys: Shayla Delgado MD Discharge: 09/07/21 Date of : 34 Report #: [id number] THIS REPORT FOR: cc: Maco Snow MD, Khanh MD Biggs, F. Douglas MD [facility] ~ DATE OF CONSULTATION: 09/02/2021 CARDIOLOGY CONSULTATION HISTORY OF PRESENT ILLNESS: I have been asked by Dr. Sethi in the Emergency Room to see this 86-year-old white male in Cardiology consultation for evaluation preoperatively of his ability to undergo an EDG today. This man came in with upper GI bleed that began this morning. He is throwing up blood several times. He is having normal bowel movements. He is not having any black tarry stools as yet. He does have a history of coronary artery disease. Additionally, he has had multiple coronary stents. He has left bundle branch block, essential hypertension, hyperlipidemia. He underwent cardiac catheterization and coronary angiography done by Dr. Gracia on August 08 of this year. That was done because of crescendo angina and a positive stress test that was done 2 weeks or so before the surgery. He had original stents done in 2014 at [facility]. I believe he had right coronary stents and LAD stents in 2014. The cardiac catheterization done on 08/08 showed a 60% distal left main, the diagonal 1 showed a 60% ostial stenosis. The circumflex was 100% chronically occluded with retrograde collateral flow from the right coronary, that is an old occlusion, I believe that may have been present in 2014, although I am not sure. I do not have the cath report. His right coronary artery showed proximal and mid stents. There was 90% stenosis in both of those stents. There was restenosis. He was stented with one long drug-eluting stent at that time. His ejection fraction was 60-65% at that time. He comes in now with his GI bleed this morning. PAST MEDICAL HISTORY: His past medical history includes left bundle branch block, essential hypertension, hyperlipidemia and coronary disease as described above. He also has renal insufficiency. PAST SURGICAL HISTORY: He has had an appendectomy, knee surgery and tonsillectomy. HOME MEDICATIONS: Include Plavix 75 mg daily, omega 3 at 1000 mg daily, Imdur 60 mg daily, levothyroxine 50 mcg daily, metoprolol 25 mg b.i.d., multivitamin, aspirin 81 mg daily, p.r.n. nitroglycerin which he has not needed since he had his stents placed, pantoprazole daily, I believe 40 mg; Crestor 20 mg daily and amlodipine [address] [place] [address] CONSULTATION Name: MALLY VALENZUELA Room: [address]#: [id number] Admission: 09/02/21 Attend Phys: Shayla Delgado MD Discharge: 09/07/21 Date of : 34 Report #: [id number] FAMILY HISTORY: Remarkable for his father having of a stroke. His mother had a heart attack. Maternal grandfather also had a heart attack and paternal grandfather had a stroke. SOCIAL HISTORY: Never smoked, does not use tobacco at all. Does not drink or use illegal drugs. REVIEW OF SYSTEMS: Negative except as per the history of present illness and past medical history. Please see our review of system form for details and negatives in review of system. PHYSICAL EXAMINATION: GENERAL: He presents as a well-developed, well-nourished white male in no acute distress. VITAL SIGNS: His pulse was 80 and regular. He was lying flat comfortably. Blood pressure was 120/80, respiration were 16 and regular. He was afebrile with a temperature of 37.1. HEENT: Head is atraumatic. Eyes are clear. NECK: Supple. There is no jugular venous distention or hepatojugular reflux. Thyroid is not enlarged. There is no adenopathy. SKIN: Warm and dry. Mucous membranes are moist. LUNGS: Clear to auscultation and percussion. HEART: Revealed distant first and second heart sound. There was soft S4. There is no S3. There are no murmurs, rubs, thrills, heaves or gallops. PMI is nondisplaced. ABDOMEN: Soft, flat, nontender. It is mildly obese. No palpable masses, no organomegaly. EXTREMITIES: Reveal no cyanosis, clubbing or edema. NEUROLOGIC: The patient mentated normally, talked normally, moved all extremities normally. LABORATORY DATA: His EKG showed left bundle branch block and did not appear to have any acute changes., his high sensitivity troponin was 80. IMPRESSION: 1. Upper gastrointestinal bleed, likely from gastritis or peptic ulcer disease in the context of aspirin and Plavix. 2. Coronary artery disease. 3. Status post multiple coronary stents, one of which is recent from 07/19/2021 that is only 25 days ago. 4. Left bundle branch block. 5. Essential hypertension. 6. Hyperlipidemia. 7. Chronic renal disease. [address] [place] [address] CONSULTATION Name: MALLY VALENZUELA David Room: [address]#: [id number] Admission: 09/02/21 Attend Phys: Shayla Delgado MD Discharge: 09/07/21 Date of : 34 Report #: [id number] RECOMMENDATIONS: I think he is a reasonable candidate for the proposed surgery. Obviously, this is not a low risk procedure given his age of 86 years and his underlying coronary artery disease and his anticoagulated state, but the risk of not proceeding exceeds the risk of proceeding in my opinion. Note, he has just recently thrown up more blood. In fact he said he threw up more on this episode than he had altogether previously. I would recommend proceeding with EDG. He unfortunately will have to remain anticoagulated, probably it would be all right to stop his aspirin, however. I would consider giving some in the short run in this context, he should be continued on Plavix; however. He will need aggressive pantoprazole treatment probably at least 40 mg b.i.d. Hopefully, something will be found that can be cauterized. Thank you very much for asking me to see Nel Valenzuela. If you have any questions, please feel free to contact me. <ELECTRONICALLY SIGNED> By: Caitlyn Nunez MD, [facility] 09/14/21 [id number]. Quincy Nunez MD, FACC /nt
== END 2021-09-07 | disposition home health service (06) | DRG 377 ==
LOC: M.ERS 07:49 → M.TBA-ER 09:39 → M.2W 09:39
PROVIDERS: Emergency Medicine Emergency Medical Services; Internal Medicine; Internal Medicine Gastroenterology; Nurse Practitioner Adult Health; ADMIT Internal Medicine; ATTEND Internal Medicine
PROC: 05HC33Z Insertion of Infusion Device into Left Basilic Vein, Percutaneous Approach (ICD-10-PCS; 2021-09-03)
PROC: 0DJ08ZZ Inspection of Upper Intestinal Tract, Via Natural or Artificial Opening Endoscopic (ICD-10-PCS; principal; 2021-09-05)
PROC: 30233N1 Transfusion of Nonautologous Red Blood Cells into Peripheral Vein, Percutaneous Approach (ICD-10-PCS; principal; 2021-09-05)
DX: K25.4 Chronic or unspecified gastric ulcer with hemorrhage (principal); I21.4 Non-ST elevation (NSTEMI) myocardial infarction; N17.0 Acute kidney failure with tubular necrosis; R65.11 Systemic inflammatory response syndrome (SIRS) of non-infectious origin with acute organ dysfunction; D62 Acute posthemorrhagic anemia; E87.0 Hyperosmolality and hypernatremia; Z20.822 Contact with and (suspected) exposure to COVID-19; K21.9 Gastro-esophageal reflux disease without esophagitis; E03.9 Hypothyroidism, unspecified; E78.5 Hyperlipidemia, unspecified; I25.10 Atherosclerotic heart disease of native coronary artery without angina pectoris; I44.7 Left bundle-branch block, unspecified; N18.30 Chronic kidney disease, stage 3 unspecified; I12.9 Hypertensive chronic kidney disease with stage 1 through stage 4 chronic kidney disease, or unspecified chronic kidney disease; R73.9 Hyperglycemia, unspecified; K44.9 Diaphragmatic hernia without obstruction or gangrene; Z90.49 Acquired absence of other specified parts of digestive tract; Z95.5 Presence of coronary angioplasty implant and graft; Z82.3 Family history of stroke; Z82.49 Family history of ischemic heart disease and other diseases of the circulatory system; Z79.01 Long term (current) use of anticoagulants